=== PATIENT | female | born 1960 | race Caucasian/White ===

== ENCOUNTER 2021-04-15 06:21 | Day surgery (SDC) | payer BC, SELFPAY ==
[~2021-04-15] VITALS: Ht 167.6 cm; Wt 69.9 kg
[2021-04-15] MEDS ORDERED: PROPOFOL 200MG/ 20ML VIAL (DIPRIVAN) IV ONE (06:22)
[2021-04-15] MEDS ORDERED: ONDANSETRON HCL 4 MG/2 ML VIAL IVP PRN (08:45)
[2021-04-15 10:35] VITALS: BP_SYST 121
== END 2021-04-15 10:25 | disposition home or self-care (01) ==
LOC: SDS 06:21 → SMU 06:23 → SDS 10:25
PROVIDERS: ATTEND Internal Medicine Gastroenterology
DX: K21.00 Gastro-esophageal reflux disease with esophagitis, without bleeding (principal); K29.50 Unspecified chronic gastritis without bleeding; K44.9 Diaphragmatic hernia without obstruction or gangrene; M79.7 Fibromyalgia; E03.9 Hypothyroidism, unspecified; Z88.2 Allergy status to sulfonamides; Z79.899 Other long term (current) drug therapy; Z20.822 Contact with and (suspected) exposure to COVID-19
CPT/HCPCS: 36415 ×2; 43239; 87081; 87426; 88305; 88312; 88313; J2704